=== PATIENT | male | born 1980 | race Caucasian/White ===

== ENCOUNTER 2020-10-30 19:57 | Emergency (ER) | payer OTHER ==
[2020-10-30 21:09] LABS: BASOPHIL 0.5 % (0-2); EOSINOPHIL 1.1 % (0-5); HCT 39.2 % (42.0-52.0); HGB 13.8 g/dl (13.2-18.0); LYMPHOCYTE 39.6 % (15-48); MCH 29.8 pg (25.0-31.0); MCHC 35.2 g/dL (32.0-36.0); MCV 84.7 fL (78.0-100.0); MONOCYTE 8.8 % (0-12); MPV 10.2 fL (6.0-9.5); NEUTROPHIL 49.7 % (41-80); NRBC 0; PLT 327 K/uL (150-400); RBC 4.63 M/uL (4.70-6.00); RDW 12.2 % (11.5-14.0); WBC 7.4 K/uL (4.0-10.5)
[2020-10-30 21:42] LABS: ALBUMIN 3.8 g/dL (3.4-5.0); BILIRUBIN - TOTAL 0.5 mg/dL (0.2-1.0); BUN/CREAT RATIO (CALC) 16.1 RATIO; CREATININE 0.93 mg/dL (0.67-1.17); GLOBULIN (CALCULATION) 3.5 g/dL; POTASSIUM 3.9 mmol/L (3.5-5.1); TOTAL PROTEIN 7.3 g/dL (6.4-8.2)
== END 2020-10-30 22:07 | disposition home or self-care (01) ==
LOC: FER 19:57
PROVIDERS: Emergency Medicine
DX: R00.2 Palpitations (principal); Z86.16 Personal history of COVID-19
CPT/HCPCS: 36415; 80053; 84484; 85025; 93005; 99284; J7030